=== PATIENT | male | born 1995 | race Caucasian/White ===

== ENCOUNTER 2017-05-13 13:28 | Emergency (ER) | payer OTHER ==
[2017-05-13 13:34] VITALS: RESP 18; O2SAT 97
[2017-05-13] MEDS ORDERED: AMOXICILLIN/CLAVULANATE POT 875/125 MG TAB PO ONE (13:54)
--- NOTE | 2017-05-13 14:05 | EDPHY ---
H & P Time Seen by Provider: 05/13/17 13:40 HPI/ROS: HPI Nail puncture wound left hand. 22-year-old male by private vehicle. He is right-hand dominant. He reports that he accidentally stabbed himself in his left hand, lesser thenar eminence, last night with a nail that was sticking out of a wooden board. This was to his neck hand. He was not wearing a glove. He complains of localized pain to the area which spreads to his finger tips in all digits and then up the middle, ventral and ulnar aspect of the wrist to mid forearm. No fever. Denies any loss of sensation in his digits. Describes having some generalized weakness in the left hand. He had a Tdap vaccine on 03/05/2015. Denies any significant localized swelling to the area. ROS: Constitutional: No fever, no chills. No weakness. Respiratory: No cough. No shortness of breath. Cardiac: No chest pain, no palpitations. Gastrointestinal: No abdominal pain, no vomiting, no diarrhea. Musculoskeletal: No back pain. No neck pain. As above. No other extremity pain. Skin: No rashes. As above. Neurological: No headache. No focal weakness or altered sensation. Past medical history: Asthma, concussion. Specifically no history of diabetes. No allergies to medications. Social history: Smokes cigarettes. Student [employer]. Drinking alcohol last night. Physical Exam: General Appearance: Alert, no distress. This patient is responding to questions appropriately and in full sentences. This patient appears well- hydrated and well-nourished. Eyes: Pupils equal and round no pallor or injection. Bloodshot eyes. No lid edema, erythema or injection. Left hand exam: He has a small 2 mm puncture wound mid ventral lesser thenar eminence. There is no palpable fluctuance or palpable foreign body on inspection of the wound area. There is no significant erythema. He has subtle swelling/edema that spreads about a cm in diameter from the immediate wound area. The ulnar, median and radial nerve distributions are intact motor and sensory function shaw. He has normal capillary refill in all digits. There is no dosing erythema or edema involving wrist and forearm. Neurological: Motor sensory function is grossly intact. Cranial nerves are normal. Gait is normal. Skin: Warm and dry, no rashes. Musculoskeletal: Neck is supple and nontender. Extremities are symmetrical. All joints range without pain or impingement. Psychiatric: No agitation. No depression. Database: EKG: Imaging: Left hand x-ray series: Negative for radiopaque foreign body, fracture, subluxation, dislocation. Interpreted by me. Procedures: Emergency department course: Medication allergies reviewed. Vital signs reviewed. Patient afebrile. Mildly tachycardic with a heart rate of 105. He will be started on Augmentin 875 mg in the emergency department. X-rays of the left hand to be obtained. 2:10 p.m., patient asking for narcotic pain medications. I feel that this is not indicated based on my physical exam findings associated with this patient's wound. He was given 600 mg of ibuprofen. 2:25 p.m., patient re-evaluated. He appears comfortable at this time. Results of his x-rays discussed with him. Plan will be to discharge him home with a prescription for Augmentin. I have instructed him on ibuprofen dosing. He has been given strict instructions on follow-up with his primary care physician or at the [facility]. He is unable to follow up at either of these 2 places he is to return here tomorrow afternoon for follow-up and re- evaluation. He is in agreement with this plan. Immediate return to emergency department precautions were discussed with him. All of his questions were answered. He was discharged in good condition. Differential Diagnosis: The differential diagnosis on this patient includes but is not limited to nail puncture wound to left hand. Bony involvement, joint involvement, cellulitis, retained foreign body, significant neurovascular injury unlikely. This represents a partial list of diagnoses considered. These considerations are based on history, physical exam, past history, reassessment and diagnostic testing. Smoking Status: Never smoked Constitutional: Initial Vital Signs Temperature (C) 36.8 C 05/13/17 13:32 Heart Rate 105 H 05/13/17 13:32 Respiratory Rate 18 05/13/17 13:32 Blood Pressure 108/72 05/13/17 13:32 O2 Sat (%) 97 05/13/17 13:32 O2 Delivery Mode Room Air Allergies/Adverse Reactions: No Known Allergies Allergy (Unverified 05/18/16 19:33) Home Medications: Medication Instructions Recorded Albuterol 5 mg/ml INH 05/18/16 HYDROcodone/APAP 10/325 [[place] 1 - 2 each PO Q4-6PRN PRN #20 tab 05/18/16 10/325] Amoxicillin/Clavulanate Pot 875 mg PO BID 7 Days tab 05/13/17 [Augmentin 875 mg tab] Medical Decision Making - Data Points Medications Given: Discontinued Medications Amoxicillin/Clavulanate Potassium (Augmentin 875mg) 875 mg PO EDNOW ONE PRN Reason: Protocol Stop: 05/13/17 13:55 Last Admin: 05/13/17 14:08 Dose: 875 mg Ibuprofen (Motrin) 600 mg PO EDNOW ONE Stop: 05/13/17 14:13 Last Admin: 05/13/17 14:13 Dose: 600 mg Departure - Departure Disposition: Home, Routine, Self-Care Clinical Impression: Puncture wound of left hand Condition: Good Instructions: Puncture Wound (ED) Additional Instructions: Read and follow provided instructions. Follow-up with your primary care physician or at the [facility] tomorrow afternoon for re-evaluation. If you are unable to do this, return to the emergency department at this time to be rechecked. Take medication as prescribed through entire course of prescription. Ibuprofen dosin mg every 6 hours with meals for the next 3 days only. Return to the emergency department for worsening swelling, redness to the wound area, redness or streaking up your forearm and wrist, fever, worsening pain or other serious concerns. Referrals: NONE *PRIMARY CARE P,. [Primary Care Provider] - As per Instructions [facility] [[facility]] - As per Instructions Prescriptions: Amoxicillin/Clavulanate Pot [Augmentin 875 mg tab] 875 mg PO BID 7 Days tab
[2017-05-13] MEDS ORDERED: IBUPROFEN 600 MG TAB PO ONE ×2 (14:10→14:12)
[2017-05-13 14:33] VITALS: BP 112/81; PULSE 86; TEMP 98.1
== END 2017-05-13 14:39 | disposition home or self-care (01) ==
DX: S61.432A Puncture wound without foreign body of left hand, initial encounter (principal); W45.0XXA Nail entering through skin, initial encounter; J45.909 Unspecified asthma, uncomplicated; F17.210 Nicotine dependence, cigarettes, uncomplicated

== ENCOUNTER 2017-06-29 14:29 | Emergency (ER) | payer OTHER ==
[2017-06-29 15:39] VITALS: RESP 16
[2017-06-29] MEDS ORDERED: NS 1,000 ML IV ONE (15:39)
[2017-06-29] MEDS ORDERED: IBUPROFEN 600 MG TAB PO ONE (15:39)
[2017-06-29] MEDS ORDERED: ACETAMINOPHEN 500 MG TAB PO ONE (15:39)
[2017-06-29 17:46] VITALS: BP 100/60; PULSE 70; TEMP 98.1; O2SAT 95
--- NOTE | 2017-06-29 18:29 | EDPHY ---
H & P Time Seen by Provider: 06/29/17 14:58 HPI/ROS: HPI Flu-like symptoms. 22-year-old male by private vehicle with his girlfriend. This patient complains of sore throat, muscle aches and joint aches, night sweats, onset 3 days ago. He also reports having a intermittent gradual onset dull frontal headache for the last 3 days. He reports it is sore throat is now better. ROS: Constitutional: No fever, no chills. No weakness. Eyes: No discharge. No changes in vision. ENT: As above. No nasal congestion or rhinorrhea. Respiratory: No cough. No shortness of breath. Cardiac: No chest pain, no palpitations. Gastrointestinal: No abdominal pain, no vomiting, no diarrhea. Genitourinary: No hematuria. No dysuria or increased frequency with urination. Musculoskeletal: As above. Skin: No rashes. Neurological: As above. No focal weakness or altered sensation. Past medical history: Asthma, concussion, history of traumatic brain injury. Social history: Student [employer]. Here with girlfriend. Nonsmoker. Denies alcohol. Physical Exam: General Appearance: Alert, no distress. This patient is responding to questions appropriately and in full sentences. This patient appears well- hydrated and well-nourished. Eyes: Pupils equal and round no pallor or injection. No lid edema, erythema or injection. ENT, Mouth: Mucous membranes are moist. The pharyngeal tissues are unremarkable. No edema or swelling. No asymmetry suggestive of abscess. No erythema or exudates. Respiratory: There are no retractions, lungs are clear to auscultation with good air movement bilaterally. Cardiovascular: Regular rate and rhythm. No murmur. Neurological: Motor sensory function is grossly intact. Cranial nerves are normal. Gait is normal. Skin: Warm and dry, no rashes. Musculoskeletal: Neck is supple and nontender. No significant pain on flexion of the neck. Extremities are symmetrical. All joints range without pain or impingement. Psychiatric: No agitation. No depression. Database: EKG: Imaging: Chest x-ray PA and lateral; the cardiac mediastinal silhouette is unremarkable. No evidence of infiltrate or pneumothorax. No acute cardiopulmonary disease process noted. Interpreted by me. Procedures: Emergency department course: IV placed. Vital signs reviewed. Patient febrile at 39.2. He was given 1 L of IV normal saline. He was given a g of Tylenol. He was given 600 mg of ibuprofen. 6:00 p.m., patient re-evaluated. Resting comfortably at this time. He is afebrile at this time. He is feeling better. Patient presents as influenza. Is outside of the treatment window for Tamiflu. He feels comfortable going home at this time. Follow-up was discussed with him. Ibuprofen dosing reviewed. Return to emergency department precautions reviewed. All of his questions were answered. The patient was discharged in good condition. Differential Diagnosis: The differential diagnosis on this patient includes but is not limited to influenza, viral syndrome. Pneumonia, meningitis, encephalitis, other serious bacterial infection unlikely. This represents a partial list of diagnoses considered. These considerations are based on history, physical exam, past history, reassessment and diagnostic testing. Smoking Status: Never smoked Constitutional: Initial Vital Signs Temperature (C) 36.8 C 06/29/17 14:30 Heart Rate 89 06/29/17 14:30 Respiratory Rate 18 06/29/17 14:30 Blood Pressure 115/72 06/29/17 14:30 O2 Sat (%) 98 06/29/17 14:30 O2 Delivery Mode Room Air Allergies/Adverse Reactions: No Known Allergies Allergy (Verified 06/29/17 14:30) Home Medications: Medication Instructions Recorded Albuterol 5 mg/ml INH 05/18/16 HYDROcodone/APAP [[place] 1 - 2 each PO Q4-6PRN PRN #20 tab 05/18/16 10325] Amoxicillin/Clavulanate Pot 875 mg PO BID 7 Days tab 05/13/17 [Augmentin 875 mg tab] Medical Decision Making - Data Points Medications Given: Discontinued Medications Acetaminophen (Tylenol) 1,000 mg PO EDNOW ONE Stop: 06/29/17 15:40 Last Admin: 06/29/17 15:45 Dose: 1,000 mg Sodium Chloride (Ns) 1,000 mls @ 0 mls/hr IV ONCE ONE PRN Reason: Wide Open Stop: 06/29/17 15:40 Last Admin: 06/29/17 15:45 Dose: 1,000 mls Ibuprofen (Motrin) 600 mg PO EDNOW ONE Stop: 06/29/17 15:40 Last Admin: 06/29/17 15:45 Dose: 600 mg Departure - Departure Disposition: Home, Routine, Self-Care Clinical Impression: Influenza Condition: Good Instructions: Influenza (ED) Additional Instructions: Read and follow provided instructions. Follow-up with your primary care physician in 1-2 days for re-evaluation. Ibuprofen dosin mg every 6 hours with meals for the next 3 days only. Keep well hydrated. Drink lots of fluids. Get plenty of rest. Return to the emergency department for worsening symptoms, worsening headache, worsening neck pain, high fever, vomiting or other serious concerns. Referrals: NONE *PRIMARY CARE P,. [Primary Care Provider] - As per Instructions [facility] [[facility]] - As per Instructions
== END 2017-06-29 19:03 | disposition home or self-care (01) ==
DX: J11.1 Influenza due to unidentified influenza virus with other respiratory manifestations (principal); J45.909 Unspecified asthma, uncomplicated